=== PATIENT | male | born 1940 | race African-American/Black ===

== ENCOUNTER 2017-07-03 18:28 | Emergency (ER) | payer MEDICARE, OTHER ==
[2017-07-03 19:05] LABS: Bilirubin Negative (Negative); Blood, Urine Negative (Negative); Glucose, Urine (Dipstick) Negative (Negative); Ketone, Urine Negative (Negative); Nitrite Negative (Negative); Protein, Urine (Dipstick) Negative (Neg-Trace)
[2017-07-03 19:25] LABS: #Eosinphils 0.2 thou/uL (0.0-0.7); #Lymphocytes 2.1 thou/uL (1.20-3.40); #Monocytes 0.5 thou/uL (0.11-0.59); #Neutrophils 2.6 thou/uL (1.40-6.50); %Basophils 0.8 % (0.0-1.0); %Eosinophils 3.7 % (0.0-10.0); %Lymphocytes 37.8 % (21.0-51.0); %Monocytes 9.8 % (0.0-10.0); Hematocrit 38.2 % (42.0-52.0); Mean Platelet Volume 6.3 fL (7.4-10.4); Red Blood Cell (RBC) Count 4.01 mill/uL (4.70-6.10); White Blood Cell (WBC) Count 5.4 thou/uL (4.8-10.8)
[2017-07-03 19:47] LABS: ALT (SGPT) 9 U/L (8-55); AST (SGOT) 13 U/L (5-34); Alkaline Phosphatase 76 U/L (40-150); Anion Gap 9 mmol/L (10-20); BUN (Urea Nitrogen) 18 mg/dL (8.4-25.7); Bilirubin, Total 0.4 mg/dL (0.2-1.2); CK (CPK) 63 U/L (30-200); Calc. Creatinine Clearance 0 mL/min (70-130); Calcium 8.9 mg/dL (7.8-10.44); Carbon Dioxide 27 mmol/L (23-31); Chloride 107 mmol/L (98-107); Estimated GFR-MDRD 71; Globulin 3.8 g/dL (2.4-3.5); Lipase 35 U/L (8-78); Protein, Total 7.6 g/dL (5.8-8.1)
[2017-07-03 19:51] LABS: Troponin I 0.025 ng/mL (< 0.028)
--- NOTE | 2017-07-03 20:09 | RAD ---
ONE VIEW CHEST: Comparison: 07-12-12 History: Altered mental status. FINDINGS: Enlarged cardiac silhouette. The pulmonary vessels and hilum are normal. Costophrenic angles are preeti r. No masses or consolidation. No pneumothorax or osseous abnormalities. IMPRESSION: No acute cardiopulmonary process. POS: [facility]
== END 2017-07-03 21:29 | disposition home or self-care (01) ==
LOC: ERS 18:28
DX: R19.7 Diarrhea, unspecified (principal); R18.8 Other ascites; I25.10 Atherosclerotic heart disease of native coronary artery without angina pectoris; I10 Essential (primary) hypertension; F17.210 Nicotine dependence, cigarettes, uncomplicated; Z86.73 Personal history of transient ischemic attack (TIA), and cerebral infarction without residual deficits
CPT/HCPCS: 36415; 36416; 71010; 80053; 81003; 82550; 82553; 83690; 84484; 85025; 93005; 96360